=== PATIENT | female | born 1955 | race Hispanic/Latino ===

== ENCOUNTER 2017-07-13 20:05 | Observation (INO) | payer OTHER ==
[~2017-07-13] VITALS: Ht 152.4 cm; Wt 54.7 kg
[2017-07-13] MEDS ORDERED: KETOROLAC TROMETHAMINE 30MG/ML ONE (20:34)
[2017-07-13] MEDS ORDERED: ONDANSETRON HCL MDV 20ML 2 MG/ML VIAL ONE (21:09)
[2017-07-13] MEDS ORDERED: HYDROMORPHONE HCL 0.5 MG/0.5 ML ML ONE (21:09)
[2017-07-13 21:35] LABS: BASOPHILS % (AUTO) 0.6 % (0.0-5.0); EOSINOPHILS % (AUTO) 1.1 % (0.0-8.0); HEMATOCRIT 38.4 % (36-48); LYMPHOCYTES % (AUTO) 21.1 % (21.0-51.0); MEAN CORPUSCULAR HEMOGLOBIN 30.8 pg (27.0-33.0); MEAN CORPUSCULAR HGB CONC 33.8 g/dL (32.0-36.0); MONOCYTES % (AUTO) 5.8 % (3.0-13.0); NEUTROPHILS % (AUTO) 71.4 % (40.0-77.0); NUCLEATED RED BLOOD CELLS 0.1 % (0.0-0.19); PLATELET COUNT (AUTO) 285 K/uL (130-400); RED BLOOD CELL COUNT(AUTO) 4.22 MIL/uL (4.00-5.50); RED CELL DISTRIBUTION WIDTH 12.5 % (11.0-15.5)
[2017-07-13 21:39] LABS: CREATININE 0.7 mg/dL (0.5-1.5); POTASSIUM 3.8 mmol/L (3.5-5.1)
[2017-07-13 21:44] LABS: BILIRUBIN,TOTAL 0.2 mg/dL (0.2-1.0); TOTAL PROTEIN, SERUM 7.7 g/dL (6.0-8.3)
[2017-07-13] MEDS ORDERED: MORPHINE SULFATE 4 MG/1ML SYG ONE (21:47)
[2017-07-13 22:10] VITALS: BP 166/72
[2017-07-13] MEDS ORDERED: ONDANSETRON HCL 4 MG/2 ML VIAL IVP PRN (22:30)
[2017-07-13] MEDS ORDERED: MORPHINE SULFATE 2 MG/ML 1ML SYG IM PRN (22:30)
[2017-07-13] MEDS ORDERED: DiphenhydrAMINE HCL 50 MG/ML VIAL IV PRN (22:45)
[2017-07-13] MEDS ORDERED: NALOXONE HCL 0.4 MG/1 ML ML IVP PRN (22:45)
[2017-07-13] MEDS ORDERED: HYDROMORPHONE PCA 10 MG/50 ML 50 ML IV PRN (22:45)
[2017-07-13] MEDS ORDERED: DIPHENHYDRAMINE HCL 25 MG CAPSULE PO PRN (22:45)
[2017-07-13] MEDS ORDERED: SODIUM CHLORIDE 0.9% 1000ML 1,000 ML IV SCH (22:45)
[2017-07-13] MEDS ORDERED: HYDROMORPHONE-NS 0.2MG/ML 50ML PCA CASSETTE IV ONE (22:54)
[2017-07-13] MEDS ORDERED: ONDANSETRON HCL MDV 20ML 2 MG/ML VIAL IVP PRN (23:11)
[2017-07-14] VITALS (20 sets, daily range): BP systolic 106–139; BP diastolic 35–68
[2017-07-14] MEDS ORDERED: MORPHINE SULFATE 2 MG/ML 1ML SYG IV PRN (00:30)
[2017-07-14] MEDS ORDERED: CEFAZOLIN 2GM / 50 ML 50 ML IV ONE (06:00)
[2017-07-14] MEDS ORDERED: CEFAZOLIN SODIUM 1 GM VIAL ONE (06:44)
[2017-07-14] MEDS ORDERED: LACTATED RINGERS 1000ML 1,000 ML IV ONE (06:55)
[2017-07-14] MEDS ORDERED: FENTANYL CITRATE PF 50 MCG/1 ML 2ML VIAL ONE (07:41)
[2017-07-14] MEDS ORDERED: MIDAZOLAM HCL 1 MG/ML 2ML VIAL ONE (07:42)
[2017-07-14] MEDS ORDERED: PROPOFOL 10 MG/ML 20ML VIAL IV ONE (07:42)
[2017-07-14] MEDS ORDERED: NEOSTIGMINE 5MG/5ML SYR IV ONE (07:50)
[2017-07-14] MEDS ORDERED: GLYCOPYRROLATE 0.2 MG/ML 5 ML VIAL ONE (07:50)
[2017-07-14] MEDS ORDERED: SUCCINYLCHOLINE CHLORIDE 20 MG/ML 10 ML VIAL ONE (07:51)
[2017-07-14] MEDS ORDERED: PHENYLEPHRINE HCL 10 MG/ML 1ML VIAL IV ONE (07:51)
[2017-07-14] MEDS ORDERED: PROMETHAZINE HCL 25 MG/ML 1ML AMPULE IM ONE (07:51)
[2017-07-14] MEDS ORDERED: EPHEDRINE SULFATE 50 MG/ML AMPULE ONE (08:22)
[2017-07-14] MEDS ORDERED: SODIUM CHLORIDE 0.9% 1000ML 1,000 ML IV SCH (08:57)
[2017-07-14] MEDS ORDERED: DiphenhydrAMINE HCL 50 MG/ML VIAL IVP PRN (09:00)
[2017-07-14] MEDS ORDERED: KETOROLAC TROMETHAMINE 30MG/ML IV PRN (09:00)
[2017-07-14] MEDS ORDERED: TRAMADOL HCL 50 MG TABLET PO PRN (09:00)
[2017-07-14] MEDS ORDERED: HYDROCODONE/ACETAMINOPHEN 5/325 MG TAB PO PRN ×2 (09:00)
[2017-07-14] MEDS ORDERED: POLYETHYLENE GLYCOL 3350 17 GM POWD.PACK PO SCH (09:00)
[2017-07-14] MEDS ORDERED: TYL3 PO (09:08)
[2017-07-14] MEDS ORDERED: CEPH500B PO (09:08)
[2017-07-14] MEDS ORDERED: NAPR-1192 PO (09:08)
[2017-07-14] MEDS ORDERED: CALDOLOR 800MG+NS 250ML 250 ML IV ONE (09:20)
[2017-07-14] MEDS ORDERED: ONDANSETRON HCL MDV 20ML 2 MG/ML VIAL IVP PRN (10:45)
[2017-07-14] MEDS ORDERED: PSYLLIUM SEED 1 EACH PACKET PO SCH (12:00)
[2017-07-16] MEDS ORDERED: BISACODYL 5 MG TABLET.DR PO PRN (09:00)
[2017-07-17] MEDS ORDERED: BISACODYL 10 MG SUPP.RECT RC PRN (09:00)
== END 2017-07-14 20:00 | disposition home or self-care (01) ==
LOC: EDH 20:05 → EDHIP 21:21 → 4AH 22:10
PROVIDERS: ADMIT Orthopaedic Surgery; ATTEND Orthopaedic Surgery
DX: S52.501A Unspecified fracture of the lower end of right radius, initial encounter for closed fracture (principal); W17.89XA Other fall from one level to another, initial encounter; Y93.89 Activity, other specified; Y92.89 Other specified places as the place of occurrence of the external cause; Y99.8 Other external cause status
CPT/HCPCS: 25606; 36415; 73110; 76000; 80053; 85025; 86850; 86900; 86901; 93005; 96365; 96375 ×2; 99285; A4649; A4930; A6223; C1713; G0378 ×23; J0330; J0690 ×2; J1170 ×2; J1741; J1885 ×2; J2250; J2270; J2370; J2550; J2704; J2710; J3010; J3490 ×2; J7120; Q4051

== ENCOUNTER 2017-07-15 15:20 | Emergency (ER) | payer OTHER ==
[~2017-07-15 15:20] MED LIST: CEPH500B PO; NAPR-1192 PO; TYL3 PO
== END 2017-07-15 17:42 | disposition home or self-care (01) ==
LOC: EDH 15:20
DX: R20.2 Paresthesia of skin (principal); Z98.890 Other specified postprocedural states
CPT/HCPCS: 73110